=== PATIENT | female | born 1950 | race Caucasian/White ===

== ENCOUNTER 2016-09-25 18:26 | Inpatient (IN) | payer OTHER ==
[~2016-09-25] VITALS: Ht 152.4 cm; Wt 94.5 kg
[2016-09-25 18:52] LABS: HEMATOCRIT 46.9 % (36.0-46.0); MCH 29.9 PG (29.0-34.0); MCV 85.6 FL (83-99); MEAN PLAT.VOLUME 10.2 uM^3 (9.5-12.4); PLATELET COUNT 205 K/uL (156-360); RBC DIS.WIDTH-CV 14.7 % (11.8-14.6); RED BLOOD COUNT 5.48 M/uL (3.80-5.20); WHITE BLOOD COUNT 21.4 K/uL (4.1-10.2)
[2016-09-25 19:00] LABS: CHLORIDE 102 mEq/L (99-109); SODIUM 136 mEq/L (136-147)
[2016-09-25 19:02] LABS: GLUCOSE 315 mg/dL (70-99)
[2016-09-25 19:03] LABS: ANION GAP 14 MEQ/L (2-14)
[2016-09-25 19:04] LABS: TOTAL BILIRUBIN 1.4 mg/dL (0.0-1.0)
[2016-09-25 19:06] LABS: ALKALINE PHOSPHATASE 108 IU/L (3-129); GFR ESTIMATE (CALCULATED) > 59 mL/min/
[2016-09-25 19:07] LABS: UREA NITROGEN (BUN) 17 mg/dL (9-23)
[2016-09-25 19:09] LABS: LIPASE 28 U/L (1.0-51.0)
[2016-09-25 19:29] LABS: ADD MIUA? YES; BILIRUBIN SMALL; BLOOD TRACE; COLOR DK YELLOW ((YELLOW)); GLUCOSE (STRIP) >=1000; KETONES 15; LEUKOCYTES NEGATIVE; NITRITE NEGATIVE; PROTEIN (STRIP) 100; SPECIFIC GRAVITY 1.034 (1.000-1.030); UROBILINOGEN 0.2 MG/DL (0.2-1.0)
[2016-09-25 20:08] LABS: EPITHELIAL CELLS 2+; RED BLOOD CELLS 0-5 /HPF (0-5)
[2016-09-25 20:09] LABS: BACTERIA 1+; CASTS NONE SEEN /LPF; CRYSTALS NONE SEEN; MUCUS NONE SEEN; UCUL ADDED? NO
[2016-09-25 22:23] LABS: INTER. NORMALIZED RATIO 1.1; PROTHROMBIN TIME 11.4 (9.2-11.2); PTT 28.5 (25-32)
[2016-09-26] VITALS (7 sets, daily range): BP systolic 99–140; BP diastolic 54–68
[2016-09-26 07:43] LABS: HEMATOCRIT 39.9 % (36.0-46.0); MCH 29.5 PG (29.0-34.0); MCHC 33.6 G/DL (30.0-36.0); MCV 87.7 FL (83-99); MEAN PLAT.VOLUME 10.7 uM^3 (9.5-12.4); PLATELET COUNT 160 K/uL (156-360); RBC DIS.WIDTH-SD 47.6 % (39-53); RED BLOOD COUNT 4.55 M/uL (3.80-5.20); WHITE BLOOD COUNT 20.2 K/uL (4.1-10.2)
[2016-09-26 07:50] LABS: ANION GAP 11 MEQ/L (2-14); CHLORIDE 107 MEQ/L (99-109); GFR ESTIMATE (CALCULATED) > 59 mL/min/; GLUCOSE 222 mg/dL (70-99); SAMPLE HEMOLYSIS CHECK 0; SAMPLE ICTERIC CHECK 0; SAMPLE LIPEMIA CHECK 0; SODIUM 139 MEQ/L (136-147); UREA NITROGEN (BUN) 15 mg/dL (9-23)
[2016-09-27 03:17] VITALS: BP 134/62
[2016-09-27 07:34] LABS: ANION GAP 9 MEQ/L (2-14); CHLORIDE 107 MEQ/L (99-109); GFR ESTIMATE (CALCULATED) > 59 mL/min/; GLUCOSE 165 mg/dL (70-99); POTASSIUM 3.6 MEQ/L (3.7-5.4); SAMPLE HEMOLYSIS CHECK 0; SAMPLE ICTERIC CHECK 0; SAMPLE LIPEMIA CHECK 0; SODIUM 139 MEQ/L (136-147); UREA NITROGEN (BUN) 18 mg/dL (9-23)
[2016-09-27 07:36] LABS: HEMATOCRIT 34.5 % (36.0-46.0); MCH 28.7 PG (29.0-34.0); MCV 86.9 FL (83-99); MEAN PLAT.VOLUME 10.2 uM^3 (9.5-12.4); PLATELET COUNT 114 K/uL (156-360); RBC DIS.WIDTH-CV 14.9 % (11.8-14.6); RBC DIS.WIDTH-SD 47.6 % (39-53); RED BLOOD COUNT 3.97 M/uL (3.80-5.20)
[2016-09-27 07:50] LABS: WHITE BLOOD COUNT 13.1 K/uL (4.1-10.2)
[2016-09-27 08:00] VITALS: BP 116/56
[2016-09-27 12:00] VITALS: BP 120/56
[2016-09-27] MEDS ORDERED: CINNAMON500 MG PO (16:39)
[2016-09-27] MEDS ORDERED: LISINOPRIL5 MG PO (16:39)
[2016-09-27] MEDS ORDERED: SPIRONOLACTONE25 MG PO (16:39)
[2016-09-27] MEDS ORDERED: PROPRANOLOL HCL20 MG PO (16:40)
[2016-09-27] MEDS ORDERED: PROZAC20 MG PO (16:40)
[2016-09-27] MEDS ORDERED: CRESTOR40 MG PO (16:41)
[2016-09-27] MEDS ORDERED: GABAPENTIN400 MG PO (16:41)
[2016-09-27] MEDS ORDERED: ASPIR-LOW81 MG PO (16:41)
[2016-09-27] MEDS ORDERED: SINGULAIR10 MG PO (16:41)
[2016-09-27] MEDS ORDERED: CYANOCOBALAM1000 MCG PO (16:42)
[2016-09-27] MEDS ORDERED: VITAMIN D31000 UNI2 PO (16:42)
[2016-09-27] MEDS ORDERED: TRAMADOL HCL50 MG PO (16:42)
[2016-09-27] MEDS ORDERED: ADVAIR 250/501 DISK IH (16:42)
[2016-09-27] MEDS ORDERED: TOUJEO SOL300 UNIT/1 SC (16:43)
[2016-09-27] MEDS ORDERED: PROVENTIL HFA6.7 GM IH (16:43)
[2016-09-27] MEDS ORDERED: NOVOLOG PE100 UNITS/ SC (16:43)
[2016-09-27 19:43] VITALS: BP 135/63
[2016-09-27 23:46] VITALS: BP 134/66
[2016-09-28 03:18] VITALS: BP 139/70
[2016-09-28 07:15] VITALS: BP 137/67
[2016-09-28 07:18] LABS: HEMATOCRIT 33.8 % (36.0-46.0); MCH 29.7 PG (29.0-34.0); MCHC 33.7 G/DL (30.0-36.0); PLATELET COUNT 118 K/uL (156-360); RBC DIS.WIDTH-CV 14.8 % (11.8-14.6); RBC DIS.WIDTH-SD 47.4 % (39-53); RED BLOOD COUNT 3.84 M/uL (3.80-5.20); WHITE BLOOD COUNT 9.8 K/uL (4.1-10.2)
[2016-09-28 07:41] LABS: ANION GAP 11 MEQ/L (2-14); CHLORIDE 106 MEQ/L (99-109); GFR ESTIMATE (CALCULATED) > 59 mL/min/; GLUCOSE 209 mg/dL (70-99); POTASSIUM 4.1 MEQ/L (3.7-5.4); SAMPLE HEMOLYSIS CHECK 0; SAMPLE ICTERIC CHECK 0; SAMPLE LIPEMIA CHECK 0; SODIUM 140 MEQ/L (136-147); UREA NITROGEN (BUN) 19 mg/dL (9-23)
[2016-09-28 15:57] VITALS: BP 141/70
[2016-09-28] MEDS ORDERED: COLACE100 MG PO (18:10)
[2016-09-28] MEDS ORDERED: ENDOCET 5-3251 EACH PO (18:10)
[2016-09-28 19:42] VITALS: BP 138/73
[2016-09-28 23:30] VITALS: BP 149/70
[2016-09-29 06:10] VITALS: BP 137/61
== END 2016-09-29 11:04 | disposition home or self-care (01) | DRG 339 ==
LOC: EME → EDBD 18:26 → EME 23:00 → SDC 23:00 → 2SOUTH 09-26 00:45 → 2EASTP 09-26 00:45
PROVIDERS: Emergency Medicine; Thoracic Surgery (Cardiothoracic Vascular Surgery)
PROC: 0DTJ0ZZ Resection of Appendix, Open Approach (ICD-10-PCS; principal; 2016-09-26)
DX: K35.2 Acute appendicitis with generalized peritonitis (principal); Z68.41 Body mass index [BMI] 40.0-44.9, adult; R11.2 Nausea with vomiting, unspecified; J44.9 Chronic obstructive pulmonary disease, unspecified; E11.9 Type 2 diabetes mellitus without complications; E78.5 Hyperlipidemia, unspecified; I10 Essential (primary) hypertension; F17.200 Nicotine dependence, unspecified, uncomplicated; I25.2 Old myocardial infarction; E66.01 Morbid (severe) obesity due to excess calories
CPT/HCPCS: 74177; 80048; 80053; 81003; 82948; 83605; 83690; 85027; 85610; 85730; 86850; 86900; 86901; 87070; 87075; 87076; 87077; 87185; 87186; 87205; 87493; 88304; 93005; 94799; 99281; 99285; J0330; J1170; J1644; J1815; J1885; J2250; J2270; J2405; J2543; J2710; J3010; J7050; J7120